=== PATIENT | female | born 2000 | race Caucasian/White ===

== ENCOUNTER 2020-07-22 14:17 | Emergency (ER) | payer OTHER ==
[~2020-07-22] VITALS: Ht 160 cm; Wt 81.6 kg
[2020-07-22 14:24] VITALS: BP 134/76
== END 2020-07-22 15:20 | disposition home or self-care (01) ==
LOC: ER 14:17
DX: S63.692A Other sprain of right middle finger, initial encounter (principal); X58.XXXA Exposure to other specified factors, initial encounter; Y93.89 Activity, other specified; Y92.89 Other specified places as the place of occurrence of the external cause; Y99.8 Other external cause status